=== PATIENT | male | born 1965 | race African-American/Black ===

== ENCOUNTER 2018-08-30 14:50 | Emergency (ER) | payer OTHER ==
[2018-08-30 14:56] VITALS: BP 98/67
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
[2018-08-30 15:27] LABS: PLATELET COUNT 352 10^3/uL (150-400)
[2018-08-30] MEDS ORDERED: IOPAMIDOL (ISOVUE-300) 100 ML BTL ONE (16:01)
[2018-08-30] MEDS ORDERED: CEPHALEXIN 500MG PREPACK#4 BTL TAKEHOME ONE (19:48)
[2018-08-30] MEDS ORDERED: OXYCODONE/APAP 5/325MG PREPACK#4 BTL TAKEHOME ONE (19:53)
== END 2018-08-30 20:32 | disposition home or self-care (01) ==
LOC: EDUNIT#
PROC: 0HQFXZZ Repair Right Hand Skin, External Approach (ICD-10-PCS; principal; 2018-08-30)
PROC: 2W3EX1Z Immobilization of Right Hand using Splint (ICD-10-PCS; principal; 2018-08-30)
DX: S22.41XA Multiple fractures of ribs, right side, initial encounter for closed fracture (principal); S62.326A Displaced fracture of shaft of fifth metacarpal bone, right hand, initial encounter for closed fracture; S61.411A Laceration without foreign body of right hand, initial encounter; V49.49XA Driver injured in collision with other motor vehicles in traffic accident, initial encounter; Y92.410 Unspecified street and highway as the place of occurrence of the external cause
CPT/HCPCS: L0120; Q9967

== ENCOUNTER → 2018-09-17 | Outpatient (CLI) | payer OTHER | LOC: FIMAGING 12:24 | PROVIDERS: ATTEND Family Medicine | DX: R05 Cough (principal); S22.41XD Multiple fractures of ribs, right side, subsequent encounter for fracture with routine healing ==

== ENCOUNTER → 2018-10-15 | Outpatient (CLI) | payer OTHER ==
[~2018-10-15] MED LIST: IOPAMIDOL (ISOVUE 370) 100 ML BTL IV ONE
== END ==
LOC: FIMAGING 15:12
PROVIDERS: ATTEND Family Medicine
DX: R06.02 Shortness of breath (principal); R05 Cough; R79.89 Other specified abnormal findings of blood chemistry; R60.9 Edema, unspecified; S22.41XA Multiple fractures of ribs, right side, initial encounter for closed fracture
CPT/HCPCS: Q9967